=== PATIENT | female | born 1970 | race Caucasian/White ===

== ENCOUNTER 2016-07-19 11:07 | Emergency (ER) | payer OTHER ==
[~2016-07-19 11:07] MED LIST: BACTRIM DS TABL1 TA1 PO; CIPRO PO; CIPRO250 MG PO; GOLYTELY4000 ML PO; LORTAB 10-5001 EACH PO; LORTAB 10/500 T1 TAB PO; METROGEL60 GM TP; MOTRIN100 MG PO; NO MEDICATIONS; NORCO 7.5-3251 EACH PO; PHENERGAN PO; PYRIDIUM PO; XANAX0.5 MG PO; XANAX2 MG PO
== END 2016-07-19 12:40 | disposition home or self-care (01) ==
LOC: CED 11:07
DX: L02.512 Cutaneous abscess of left hand (principal); F41.9 Anxiety disorder, unspecified; F17.200 Nicotine dependence, unspecified, uncomplicated; Z88.0 Allergy status to penicillin
CPT/HCPCS: 10060; 99283